=== PATIENT | male | born 1990 | race African-American/Black ===

== ENCOUNTER 2016-07-14 23:45 | Emergency (ER) | payer OTHER ==
[2016-07-15 00:02] VITALS: BP 120/89; PULSE 86; TEMP 97.8; BMI 27.3
[2016-07-15] MEDS ORDERED: KETOROLAC TROMETHAMINE 60 MG/2 ML VIAL IM ONE (00:36)
[2016-07-15] MEDS ORDERED: DIPHTH,PERTUSS(ACELL),TET 0.5 ML DISP.SYRIN IM ONE (00:36)
[2016-07-15] MEDS ORDERED: KETOROLAC TROMETHAMINE 60 MG/2 ML VIAL ONE (00:37)
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
== END 2016-07-15 02:17 | disposition home or self-care (01) ==
LOC: JER 23:45
PROC: 3E0234Z Introduction of Serum, Toxoid and Vaccine into Muscle, Percutaneous Approach (ICD-10-PCS; principal; 2016-07-14)
PROC: 3E0233Z Introduction of Anti-inflammatory into Muscle, Percutaneous Approach (ICD-10-PCS; 2016-07-14)
DX: S01.511A Laceration without foreign body of lip, initial encounter (principal); Y04.0XXA Assault by unarmed brawl or fight, initial encounter; Y93.89 Activity, other specified; Y92.89 Other specified places as the place of occurrence of the external cause
CPT/HCPCS: 70486-TC; 90471; 90715; 96372; 99282-25

== ENCOUNTER 2019-05-28 08:08 | Emergency (ER) | payer OTHER ==
[2019-05-28 08:28] VITALS: BP 133/77; PULSE 72; TEMP 98.6; BMI 25.1
--- NOTE | 2019-05-28 08:40 | PDOC ---
History of Present Illness - General Chief Complaint: Pain Stated Complaint: PAIN Time Seen by Provider: 05/28/19 08:38 - History of Present Illness Initial Comments: 05/28/19 08:40 CHIEF COMPLAINT: R jaw pain HISTORY OF PRESENT ILLNESS: 28 yo M with no PMH presents to [facility] with R jaw pain x 3 days. Patient denies any fever, chills, nausea, vomiting. Patient reports pain with chewing but is able to fully open and close his mouth. No recent travel or sick contacts. PAST MEDICAL HISTORY: Denies past medical history FAMILY HISTORY: Denies SOCIAL HISTORY: Denies tobacco, alcohol, illicit drug use. SURGICAL HISTORY: Denies ALLERGIES: No known drug allergies REVIEW OF SYSTEMS General/Constitutional: Denies fever or chills. Denies weakness, weight change. HEENT: R jaw pain. Denies change in vision. Denies ear pain or discharge. Denies sore throat. Cardiovascular: Denies chest pain or shortness of breath. Respiratory: Denies cough, wheezing, or hemoptysis. Gastrointestinal: Denies nausea, vomiting, diarrhea or constipation. Denies rectal bleeding. Genitourinary: Denies dysuria, frequency, or change in urination. Musculoskeletal: Denies joint or muscle swelling or pain. Denies neck or back pain. Skin and breasts: Denies rash or easy bruising. Neurologic: Denies headache, vertigo, loss of consciousness, or loss of sensation. Psychiatric: Denies depression or anxiety. Endocrine: Denies increased thirst. Denies abnormal weight change. Hematologic/Lymphatic: Denies anemia, easy bleeding, or history of blood clots. Allergic/Immunologic: Denies hives or skin allergy. Denies latex allergy. PHYSICAL EXAM General Appearance: Well-appearing, appropriately dressed. No apparent distress , no intoxication. HEENT: Broken lower 3rd R molar with exposed root. No mastoid tenderness or tenderness to maxillary bone. Mild swelling to R TMJ region. NO erythema, no abscess appreciated. EOMI, PERRLA, normal ENT inspection, normal voice, TMs normal, pharynx normal. No conjunctival pallor. No photophobia, scleral icterus. Neck: Supple. Trachea midline. No tenderness, rigidity, carotid bruit, stridor , lymphadenopathy, or thyromegaly. Respiratory/Chest: Lungs CTAB. No shortness of breath, chest tenderness, respiratory distress, accessory muscle use. No crackles, rales, rhonchi, stridor , wheezing, dullness Cardiovascular: RRR. S1, S2. No JVD, murmur, bradycardia, tachycardia. Vascular Pulses: Dorsalis-Pedis (R): 2+, Dorsalis-Pedis (L): 2+ Gastrointestinal/Abdominal: Normal bowel sounds. Abdomen soft, non-distended. No tenderness or rebound tenderness. No organomegaly, pulsatile mass, guarding , hernia, hepatomegaly, splenomegaly. Lymphatic: No adenopathy, tenderness. Musculoskeletal/Extremities: Normal inspection. FROM of all extremities, normal capillary refill. Pelvis Stable. No CVA tenderness. No tenderness to extremities, pedal edema, swelling, erythema or deformity. Integumentary: Appropriate color, dry, warm. No cyanosis, erythema, jaundice or rash Neurologic: yarn mercerizer operator helper II-XII intact. Fully oriented, alert. Appropriate mood/affect. Motor strength 5/5. No appreciable EOM palsy, facial droop or sensory deficit. 05/28/19 09:07 05/28/19 13:17 Past History - Past Medical History Allergies/Adverse Reactions: Allergies Allergy/AdvReac Type Severity Reaction Status Date / Time No Known Allergies Allergy Verified 05/28/19 08:26 Home Medications: Ambulatory Orders Ibuprofen 800 mg PO TID PRN #21 tablet 07/15/16 Clindamycin [Cleocin -] 300 mg PO QID #40 capsule 05/28/19 Ibuprofen 600 mg PO TID #30 tablet 05/28/19 Anemia: No Asthma: No Cancer: No Cardiac Disorders: No CVA: No COPD: No CHF: No Dementia: No Diabetes: No GI Disorders: No Disorders: No HTN: No Hypercholesterolemia: No Liver Disease: No Seizures: No Thyroid Disease: No - Surgical History Abdominal Surgery: Yes - Immunization History Td Vaccination: Yes - Psycho Social/Smoking Cessation Hx Smoking Status: No Smoking History: Never smoked Number of Cigarettes Smoked Daily: 0 Hx Alcohol Use: No Drug/Substance Use Hx: No Substance Use Type: None Hx Substance Use Treatment: No *Physical Exam - Vital Signs Last Vital Signs Temp Pulse Resp BP Pulse Ox 98.6 F 72 18 133/77 99 05/28/19 08:23 05/28/19 08:23 05/28/19 08:23 05/28/19 08:23 05/28/19 08:23 Medical Decision Making - Medical Decision Making 05/28/19 13:22 28 yo M with no PMH presents to [facility] with R jaw pain x 3 days. Discussed risks vs benefits of CT to eval for abscess vs mastoiditis. Patient refuses CT at this time and prefers to trial abx with close f/u. Clindamycin rx, strict return precautions given. Advised patient to take medication as prescribed and follow up with [facility] if symptoms persist. Advised patient of signs and symptoms for return to ED. Patient verbalized understanding and agrees to plan. Discharge - Discharge Information Problems reviewed: Yes Clinical Impression/Diagnosis: Mandibular swelling Condition: Stable Disposition: HOME - Admission No - Additional Discharge Information Prescriptions: Clindamycin [Cleocin -] 300 mg PO QID #40 capsule Ibuprofen 600 mg PO TID #30 tablet - Follow up/Referral Referrals: Fredi Joyce MD [Primary Care Provider] - - Patient Discharge Instructions Patient Printed Discharge Instructions: DI for Dental Pain Additional Instructions: Please take medications as prescribed. Complete the entire course of antibiotics even if your symptoms improve. Follow-up with an oral and maxillary facial dentist for continued monitoring and treatment of your broken tooth to avoid recurrent infections. As discussed if your symptoms do not improve or worsen within 48 hours, or you develop any fever, chills, vomiting, diarrhea, or any new or worsening symptoms , please return to the ER. - Post Discharge Activity
[2019-05-28] MEDS ORDERED: IBUPROFEN 600 MG TABLET (FP) PO ONE (09:06)
[2019-05-28] MEDS ORDERED: IBUPROFEN 400 MG TABLET (FP) PO ONE (09:12)
== END 2019-05-28 09:32 | disposition home or self-care (01) ==
LOC: JERFT 08:08 → JER 08:08 → JERFT 09:32
DX: K08.89 Other specified disorders of teeth and supporting structures (principal); R22.0 Localized swelling, mass and lump, head; R68.84 Jaw pain
CPT/HCPCS: 99281-25